=== PATIENT | female | born 2000 | race African-American/Black ===

== ENCOUNTER 2019-11-22 23:57 | Emergency (ER) | payer BC ==
[~2019-11-22] VITALS: Ht 160 cm; Wt 60.0 kg
[2019-11-23 00:08] VITALS: BP 144/90; TEMP 99.2
[2019-11-23 01:07] VITALS: PULSE 92
== END 2019-11-23 01:07 | disposition home or self-care (01) ==
LOC: COL.ER 23:57
DX: T19.2XXA Foreign body in vulva and vagina, initial encounter (principal); Z90.49 Acquired absence of other specified parts of digestive tract; Z72.51 High risk heterosexual behavior

== ENCOUNTER 2020-06-23 10:51 | Emergency (ER) | payer BC ==
[~2020-06-23] VITALS: Ht 160 cm; Wt 72.7 kg
[2020-06-23 11:01] VITALS: PULSE 138; TEMP 98.4
[2020-06-23] MEDS ORDERED: ZOLOFT 100MG100 MG PO (11:45)
[2020-06-23] MEDS ORDERED: PRENATAL TABLET PO (11:45)
[2020-06-23 12:08] LABS: BASO # 0.1 (0.0-0.2); BASO % 0.3 % (0.0-2.0); EOS # 0.2 (0.0-0.7); EOS % 1.6 % (0-4.0); GRAN # 11.3 (1.4-6.5); GRAN % 76.6 % (42.2-75.2); HEMOGLOBIN 11.1 g/dl (12.5-16.0); LYMPH # 1.6 (1.2-3.4); LYMPH % 11.1 % (20.0-51.0); MEAN CELL VOLUME 86 fl (80.0-100.0); MEAN CORPUSCULAR HEMOGLOBIN 29 pg (27.0-31.0); MEAN CORPUSCULAR HGB CONC 34 g/dl (33.0-37.0); MEAN PLATELET VOLUME 10.4 fl (7.4-10.4); MONO # 1.4 (0.1-0.6); MONO % 9.5 % (1.7-9.3); PLATELET COUNT 239 K/mm3 (130-400); RED BLOOD COUNT 3.82 M/mm3 (4.10-5.30); REDCELL DISTRIBUTION WIDTH-CV 12.4 % (11.5-14.5)
[2020-06-23 12:28] LABS: ALBUMIN 3.5 gm/dL (3.5-5.0); BILIRUBIN,TOTAL 0.5 mg/dL (0.0-1.0); CALCIUM 8.8 mg/dL (8.4-10.2); CREATININE, serum 0.49 (0.52-1.25); POTASSIUM 3.6 mmol/L (3.4-5.0); TOTAL PROTEIN 6.9 gm/dL (6.4-8.2)
[2020-06-23 12:34] LABS: COLLECTION METHOD CLEAN CATCH
[2020-06-23 12:41] LABS: C-REACTIVE PROTEIN 13.8 mg/dL (0.0-0.9)
[2020-06-23 12:50] LABS: MUCOUS Present /lpf; PH 6 (5-8); URINE APPEARANCE Hazy; URINE BACTERIA Rare /hpf; URINE BILIRUBIN Negative (NEGATIVE); URINE BLOOD Negative (NEGATIVE); URINE COLOR Yellow; URINE GLUCOSE Negative (NEGATIVE); URINE KETONE Negative (NEGATIVE); URINE LEUKOCYTE ESTERASE Trace (NEGATIVE); URINE NITRATE Negative (NEGATIVE); URINE PROTEIN(semi-quant) 1+ (NEGATIVE); URINE RBC 0-2 /hpf
[2020-06-23 14:48] VITALS: BP 103/70
== END 2020-06-23 14:48 | disposition home or self-care (01) ==
LOC: COL.ER 10:51
PROVIDERS: Nurse Practitioner
DX: O98.512 Other viral diseases complicating pregnancy, second trimester (principal); R50.9 Fever, unspecified; M54.2 Cervicalgia; M54.9 Dorsalgia, unspecified; Z20.828 Contact with and (suspected) exposure to other viral communicable diseases; Z3A.22 22 weeks gestation of pregnancy
CPT/HCPCS: J7030

== ENCOUNTER → 2023-12-11 | Outpatient (CLI) | payer BC ==
[~2023-12-11] MED LIST: CEPHALEXIN500 M1 PO; PRENATAL TABLET PO; ZOLOFT 100MG100 MG PO
== END ==
LOC: COL.RAD 07:30
DX: N83.01 Follicular cyst of right ovary (principal)